=== PATIENT | male | born 1945 | race Two or more races ===

== ENCOUNTER → 2018-05-18 | Outpatient (CLI) | payer MEDICARE ==
[2015-08-12 14:45] VITALS: BP 132/75
[~2018-05-18] MED LIST: CANA300T PO; HYDR-963 PO; MOVANTIK25 MG PO; OXYC30TA PO; PANT40TA5 PO
[2018-05-22 15:29] LABS: ANA INTERP Negative (.)
[2018-05-22 19:15] LABS: ALPHA 1 0.2 g/dL (0.0-0.4); ALPHA 2 0.6 g/dL (0.4-1.0); BETA 1.1 g/dL (0.7-1.3); GAMMA 2.5 g/dL (0.4-1.8); PROTEIN TOTAL 7.6 g/dL (6.0-8.5); SPEP AG RATIO 0.7 (0.7-1.7)
== END | disposition home or self-care (01) ==
LOC: LAB 11:45 → EDBD 11:45
PROVIDERS: ATTEND Psychiatry & Neurology Neurology with Special Qualifications in Child Neurology
DX: E11.42 Type 2 diabetes mellitus with diabetic polyneuropathy (principal)
CPT/HCPCS: 36415; 82607; 82746; 84165; 84443; 85651; 86038

== ENCOUNTER → 2018-05-19 | Outpatient (CLI) | payer MEDICARE ==
[2015-08-12 14:45] VITALS: BP 132/75
--- NOTE | 2018-05-19 18:05 | RAD ---
LEFT HIP AP AND LATERAL Clinical Indication: CHRONIC LEFT HIP PAIN Comparison: None. Findings: There is no acute fracture or dislocation. Mild degenerative arthropathy of the left hip for patient age. There is mild joint space narrowing. Visualized pelvic bones appear intact. There is no soft tissue abnormality or radiopaque foreign body. IMPRESSION: Mild degenerative arthropathy. Electronically signed by: Fito Baez MD (05/19/2018 6:02 PM) [id number]
== END | disposition home or self-care (01) ==
LOC: RAD 14:33
PROVIDERS: ATTEND Family Medicine
DX: M12.852 Other specific arthropathies, not elsewhere classified, left hip (principal); G89.29 Other chronic pain
CPT/HCPCS: 73502

== ENCOUNTER → 2020-03-14 | Outpatient (CLI) | payer MEDICARE ==
[2015-08-12 14:45] VITALS: BP 132/75
[~2020-03-14] MED LIST changes: +HYDR-3135 PO; -HYDR-963 PO; -OXYC30TA PO; +OXYC30TA3 PO; -PANT40TA5 PO; +PANT40TA77 PO
--- NOTE | 2020-03-14 14:32 | RAD ---
EXAM: Cervical spine, 6 views. HISTORY: Pain. COMPARISON: None. FINDINGS: 6 views of the cervical spine are obtained. There is no listhesis. The vertebral bodies are normal in height and the disc spaces are preserved. There is small ossicles along the anterior aspects of C5-C6 and C6-C7. There is mild facet arthropathy at multiple levels. IMPRESSION: No acute osseous finding. Mild multilevel degenerative change. Electronically signed by: Rae Murdock MD (03/14/2020 2:29 PM) [facility]
== END | disposition home or self-care (01) ==
LOC: RAD 11:31
PROVIDERS: ATTEND Family Medicine
DX: M79.602 Pain in left arm (principal); M79.605 Pain in left leg; M54.2 Cervicalgia; M47.9 Spondylosis, unspecified
CPT/HCPCS: 72050

== ENCOUNTER 2020-03-31 07:46 | Emergency (ER) | payer MEDICARE ==
[~2020-03-31] VITALS: Ht 162.6 cm; Wt 81.4 kg
[2020-03-31 07:50] VITALS: BP 161/75
[2020-03-31] MEDS ORDERED: OXYC10TA PO (08:08)
--- NOTE | 2020-03-31 08:08 | PHYS DOC ---
Past Medical History Past Medical History: No Pertinent History Past Surgical History: No Surgical History Smoking Status: Never Smoker Alcohol Use: None Drug Use: None General Adult EDM: Chief Complaint: MEDICATION REFILL HPI: HPI: Patient is a 74 year old male who had chronic knee pain, on chronic pain med ication oxycodone 10 mg every 4 hours as needed for pain, presented to ER today for medication refill because patient said he ran out of medication 1 day earlier than his supposed to be. Patient said he will see her family doctor tomorrow for his pain medication, but he needs some pain medication relief today. Patient denies any injury. Patient denies any nausea vomiting, no abd ominal pain, no cough, no fever. Review of Systems: Review of Systems: Constitutional: Denies fever or chills. [] Eyes: Denies change in visual acuity. [] HENT: Denies nasal congestion or sore throat. [] Respiratory: Denies cough or shortness of breath. [] Cardiovascular: Denies chest pain or edema. [] GI: Denies abdominal pain, nausea, vomiting, bloody stools or diarrhea. [] : Denies dysuria. [] Musculoskeletal: Denies back pain, positive for bilateral knee pain. Integument: Denies rash. [] Neurologic: Denies headache, focal weakness or sensory changes. [] Endocrine: Denies polyuria or polydipsia. [] Lymphatic: Denies swollen glands. [] Psychiatric: Denies depression or anxiety. [] Heart Score: Risk Factors: Risk Factors: DM, Current or recent (<one month) smoker, HTN, HLP, family history of CAD, obesity. Risk Scores: Score 0 - 3: 2.5% MACE over next 6 weeks - Discharge Home Score 4 - 6: 20.3% MACE over next 6 weeks - Admit for Clinical Observation Score 7 - 10: 72.7% MACE over next 6 weeks - Early Invasive Strategies Allergies: Allergies: Allergies Coded Allergies Type Severity Reaction Last Updated Verified Penicillins Allergy Intermediate Itching 08/12/15 Yes Physical Exam: PE: Constitutional: Well developed, well nourished, no acute distress, non-toxic gigi earance. [] HENT: Normocephalic, atraumatic, bilateral external ears normal, oropharynx moist, no oral exudates, nose normal. [] Eyes: PERRLA, EOMI, conjunctiva normal, no discharge. [] Neck: Normal range of motion, no tenderness, supple, no stridor. [] Cardiovascular:Heart rate regular rhythm, no murmur [] Lungs & Thorax: Bilateral breath sounds clear to auscultation [] Abdomen: Bowel sounds normal, soft, no tenderness, no masses, no pulsatile masses. [] Skin: Warm, dry, no erythema, no rash. [] Back: No tenderness, no CVA tenderness. [] Extremities: No tenderness, no cyanosis, no clubbing, ROM intact, no edema. [] Neurologic: Alert and oriented X 3, normal motor function, normal sensory function, no focal deficits noted. [] Psychologic: Affect normal, judgement normal, mood normal. [] EKG: EKG: [] Radiology/Procedures: Radiology/Procedures: [] Course & Med Decision Making: Course & Med Decision Making Pertinent Labs and Imaging studies reviewed. (See chart for details) Patient is a 74-year-old male who was evaluated in ER due to chronic knee pain, he request refill for his chronic pain medication. Patient was given 6 tablets of oxycodone prescription, he will need to see his doctor tomorrow. Mary [place] Disclaimer: [facility] Disclaimer: This electronic medical record was generated, in whole or in part, using a voice recognition dictation system. Departure Departure Impression: Primary Impression: Chronic pain Additional Impression: Medication refill Disposition: 01 HOME, SELF-CARE Condition: STABLE Referrals: KP CARMICHAEL MD (PCP) follow up with Dr. Carmichael tomorrow. Patient Instructions: Chronic Pain, Medication Refill, Emergency Department Scripts Oxycodone Hcl (OXYCODONE HCL IMMED.RELEASE) 10 Mg Tablet 10 MG PO PRN Q6HRS PRN for PAIN for 1 Day, #6 TAB 0 Refills Prov: KORINA GRANDE DO 03/31/20 Justicifation of Admission Dx: Justifications for Admission: Justification of Admission Dx: N/A KORINA GRANDE DO Mar 31, 2020 08:08
== END 2020-03-31 08:15 | disposition home or self-care (01) ==
LOC: ER 07:46
DX: G89.29 Other chronic pain (principal); M25.561 Pain in right knee; M25.562 Pain in left knee; Z88.0 Allergy status to penicillin; Z76.0 Encounter for issue of repeat prescription
CPT/HCPCS: 99281

== ENCOUNTER → 2020-07-08 | Outpatient (CLI) | payer MEDICARE ==
[~2020-07-08] MED LIST changes: +OXYC10TA PO
--- NOTE | 2020-07-08 15:44 | KCIC ---
MRI of the lumbar spine without contrast 08/08/2019 CLINICAL HISTORY: Low back pain with bilateral leg pain for last 2-3 years. TECHNIQUE: Unenhanced T1-weighted and T2-weighted sagittal and axial and inversion recovery sagittal images the lumbar spine were obtained. FINDINGS: Minimal S-shaped curvature of the thoracolumbar spine is seen. Degenerative signal changes are seen involving all of the disks of the lumbar spine. The marrow signal of the visualized bony str uctures is within normal limits. The conus medullaris is normal morphology, position, and signal maral acteristics. 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 The L1-2 disc space is a minimal generalized disc bulge. Degenerative changes are seen involving the facet joints bilaterally. These findings do not result in significant central spinal canal or neural foraminal stenosis. The L2-3 disc space there is a mild generalized disc bulge. Degenerative changes are seen involving t he facet joints bilaterally. There is mild to moderate ligamentum flavum hypertrophy bilaterally. The se findings combine with the narrow AP diameter of the central spinal canal result in mild central sp inal canal stenosis. No neural foraminal stenosis is seen. At the L3-4 disc space there is a mild to moderate generalized disc bulge. This is eccentric to the r ight. Degenerative changes are seen involving the facet joints bilaterally. There is moderate ligamen yoni flavum hypertrophy bilaterally. These findings when combined result in mild central spinal canal stenosis. No neural foraminal stenosis is seen. At the L4-5 disc space there is a mild generalized disc bulge. Degenerative changes are seen involvin g the facet joints bilaterally. There is moderate ligamentum flavum hypertrophy bilaterally. These fi ndings when combined result in mild central spinal canal stenosis. No neural foraminal stenosis is se en. At the L5-S1 disc space there is a mild generalized disc bulge. Degenerative changes are seen involvi ng the facet joints bilaterally. These findings when combined do not result in significant central sp inal canal or neural foraminal stenosis. IMPRESSION: The changes of degenerative disc disease are seen involving the lumbar spine. These findi ngs result in mild central spinal canal stenosis at L2-3, L3-4 and L4-5. No neural foraminal stenosis is seen. Electronically signed by: Oswald Webb MD (07/08/2020 3:41 PM) [id number]
== END ==
LOC: KCIC MRI 12:48
PROVIDERS: ATTEND Family Medicine
DX: M51.36 Other intervertebral disc degeneration, lumbar region (principal); M48.061 Spinal stenosis, lumbar region without neurogenic claudication; M79.7 Fibromyalgia
CPT/HCPCS: 72148

== ENCOUNTER → 2020-07-29 | Outpatient (CLI) | payer MEDICARE ==
[~2020-07-29] MED LIST changes: +IOHEXOL 180 MG/ML 10 ML VIAL. ONE; +methylPREDNISolone ACETATE 40 MG/ML VIAL. ONE; +methylPREDNISolone ACETATE 80 MG/ML VIAL. ONE
--- NOTE | 2020-07-29 14:31 | PDOC1 ---
INITIAL PAIN CONSULT DATE OF SERVICE: DOS: DATE: 07/29/20 TIME: 14:22 CHIEF COMPLAINT: Chief Complaint: Low back and bilateral lower extremity pain HISTORY OF PRESENT ILLNESS: 74-year-old male presents with history of pain low back bilateral lower extremities for many years approximate 11 years worse with walking standing changing positions better with sitting or laying down but does awaken her from sleep occasionally on and off patient reports it does affect his ability to walk and can affect his bladder or bowel control but is usually increased urgency and no loss of continence. Patient reports he has had multiple physical therapy treatments over the years chiropractic treatments epidural injections facet blocks and was suggested that he get his stimulator several years ago through an outside pain clinic. Patient reports that he was not interested in doing that at the time and has just been putting up with the pain he does take oxycodone 10 mg up to twice a day patient did have a recent MRI scan of his lumbar spine showing multiple levels of degenerative disc disease with the mild central spinal canal stenosis L2-3 L3-4 and L4-5 with no neuroforaminal stenosis with generalized disc bulges at L2-3 L3 445 and 5 S1 with mild spinal canal stenosis at the L3-4 and L4-5 levels as well. Patient reports his pain is throbbing changes during the day worse with activity standing walking changing positions better with sitting or laying down radiating pain described as aching in the back cramping and sometimes worse at night patient rates his disability rating 0-10 10 being the worst is a 5 with family home responsibilities 8 with recreation social activity 9 with sexual Haver 6 with occupational activity 3 with self-care and one with life support activities. PAST MEDICAL HISTORY: PMH: Type 2 diabetes, hearing loss, cataracts, arthritis, cirrhosis, gastroesophageal reflux, depression, neuropathy PREVIOUS SURGERIES: Past Surgical Hx: Left knee surgery, bilateral cataract extractions CURRENT MEDICATIONS: Current Meds: Active Scripts Medications Dose Route/Sig Max Daily Dose Days Date Category Oxycodone Hcl Immed.release (Oxycodone Hcl) 10 Mg Tablet 10 Mg PO PRN Q6HRS PRN 1 03/31/20 Rx Movantik (Naloxegol Oxalate) 25 Mg Tablet 25 Mg PO DAILY 08/12/15 Reported Invokana (Canagliflozin) 300 Mg Tablet 300 Mg PO DAILY 08/12/15 Reported Oxycodone Hcl Immed.release (Oxycodone Hcl) 30 Mg Tablet 1 Tab PO Q4HRS PRN 08/12/15 Reported ALLERGIES; Allergies: Coded Allergies: Penicillins (Verified Allergy, Intermediate, Itching, 08/12/15) FAMILY HISTORY: Family Hx: Heart disease, diabetes, cancers, hypertension SOCIAL HISTORY: Social Hx: Patient does not drink alcohol does not smoke does not use any illegal illicit recreational drugs is single lives locally in [facility] REVIEW OF SYSTEMS: ROS: Positive for those items mentioned in history of present illness, all systems are reviewed, otherwise negative, is complete full and well-documented on patient's chart PHYSICAL EXAM: VS: Pressure is 143/69 pulse 94 respirations 20 temperature 98.8 F height is 5 feet 4 inches weight is 190 pounds PE: PHYSICAL EXAMINATION: GENERAL: The patient is awake, alert, oriented, appropriate, very pleasant demeanor HEENT: Shows normocephalic, atraumatic. Extraocular movements are intact and symmetrical. Oral cavity: Mucous membranes moist and pink. Dentition is in tact. NECK: Shows anterior throat supple without palpable lymphadenopathy noted. Swallow reflex symmetrical. CHEST: Shows normal on inspection. Breath sounds are clear bilaterally, no rales rhonchi or wheezes auscultated. HEART: Shows S1, S2 clear. No murmurs auscultated. ABDOMEN: Soft, nontender, nondistended, obese. No palpable organomegaly is noted. No rebound or guarding demonstrated. BACK: Shows spine grossly in the midline. Normal-appearing cervical lordotic curvature. There is increased thoracic kyphosis, some flattening of the lumbar lordotic curvature. Lumbar paraspinous muscles show symmetrical on inspection, on palpation shows some moderate tenderness diffusely throughout the upper, middle and lower distribution of the paraspinous muscles bilaterally and also into the lower thoracic paraspinous musculature, firm and tender, but without specific trigger points, without radiation of pain. The patient has good rotational motion of the lumbar spine, both laterally as well as extension and flexion without significant difficulty. No tenderness over the spinous processes, sacrum or sacroiliac regions. EXTREMITIES: Lower extremities show deep tendon reflexes 1+ in the patellar and tendo calcaneus tendons. Motor exam is 4 on a scale of 5 with right dorsiflexion, extension, quadriceps and hamstring flexion and 4/5 on the left. Peripheral pulses are 1+ posterior tibial. No peripheral edema is noted bilaterally. Lower extremities are warm and dry to touch, equal in color and appearance. Straight leg raise noted to be negative bilaterally. Gaenslen's and Ervin's maneuvers are negative bilaterally as well. The patient is able to stand, needs help using the arms of the chair to get to a standing position from seated but is walking with a slight shuffling gait does not appear to favor the right or left lower extremity significantly over the other and is not using any assistive devices to ambulate. SKIN: Shows warm and dry, good turgor. No edema. No sores, rashes or bruising throughout. IMPRESSION: Impression: 74-year-old male with 11-year plus history of low back and bilateral lower extremity pain, status post multiple interventions over time. MRI scan lumbar spine as noted Arthritis Type 2 diabetes Plan: Options were discussed with the patient including conservative medical management physical therapies and interventional techniques. Patient would like to try an eventual techniques once again as he has had some limited success with these in the past. We discussed a lumbar epidural steroid injection using description as well as anatomical models to describe the procedure. Risks were discussed including but not limited to: Bleeding, infection, possibility of epidural hematoma and subsequent neurological compromise, dural puncture, headaches, spinal cord and/or nerve damage, side effects of steroid medication, and poor results regarding pain control. Patient understands wished to proceed. Patient will return to clinic in approximate 2 weeks for follow-up, was counse led as to return appointment activity level and side effects to be aware of. Procedure is lumbar epidural steroid injection under local anesthetic using sterile prep and drape at the L4-5 level using C-arm fluoroscopic guidance in both AP and lateral views medications injected is 120 mg Depo-Medrol + 10 mL preservative-free normal saline and 2 mL contrast- condition at discharge is stable patient tolerated procedure well had no complications. ASHLEY LEIVA MD Jul 29, 2020 14:31
== END | disposition home or self-care (01) ==
LOC: PNCL 12:52
PROVIDERS: ATTEND Anesthesiology
DX: M54.5 Low back pain (principal); M79.605 Pain in left leg; M79.604 Pain in right leg; M19.90 Unspecified osteoarthritis, unspecified site; K21.9 Gastro-esophageal reflux disease without esophagitis; F32.9 Major depressive disorder, single episode, unspecified; E11.40 Type 2 diabetes mellitus with diabetic neuropathy, unspecified; Z88.0 Allergy status to penicillin; Z79.899 Other long term (current) drug therapy; Z98.890 Other specified postprocedural states; Z82.49 Family history of ischemic heart disease and other diseases of the circulatory system; Z83.3 Family history of diabetes mellitus
CPT/HCPCS: 62323; J1030; J1040; Q9965

== ENCOUNTER → 2020-08-19 | Outpatient (CLI) | payer MEDICARE ==
[~2020-08-19] MED LIST changes: +DIPH25CA PO; +IBUP200T58 PO; +LACT20SO PO; +METF500T16 PO
--- NOTE | 2020-08-19 12:04 | PDOC ---
Progress Note - Pain Clinic Date of Service: DOS: DATE: 08/19/20 TIME: 12:01 Diagnosis: Dx: Lumbar radiculopathy with lumbar degenerative disc disease lumbar spinal stenosis and lumbar spondylosis History or Present Illness: HPI: 75-year-old male returns for follow-up status post lumbar epidural steroid traction x1. Patient reports no significant improvement in the low back and bilateral lower extremity pain. Patient reports still pain in the bilateral lower extremities worse on the right than the left traveling in the anterior medial aspect of the thigh into the medial lower leg to the ankle and foot as well as across the low back and the bilateral posterior gluteus and on the left anterior thigh as well. Patient reports worse with walking standing changing positions keeps him from sleeping, and awakens him about every 6 hours. Patient reports his pain is a 9 on scale 10 at all times average worst and least and is a 9 today. Patient scribes pain is aching and dull tingling cramping and shooting greater in the right than the left lower extremity. Patient reports no new motor or sensory deficits no new bowel or bladder incontinence or other comp laints. Physical Exam: VS: Blood pressure is 137/71 pulse 93 respirations 18 temperature 98.9 F height is 5 feet 4 inches weight is 188 pounds PE: PHYSICAL EXAMINATION: GENERAL: The patient is awake, alert, oriented, appropriate, very pleasant demeanor HEENT: Shows normocephalic, atraumatic. Extraocular movements are intact and symmetrical. Oral cavity: Mucous membranes moist and pink. NECK: Shows anterior throat supple without palpable lymphadenopathy noted. Swallow reflex symmetrical. CHEST: Shows normal on inspection. Breath sounds are clear bilaterally. HEART: Shows S1, S2 clear. No murmurs auscultated. ABDOMEN: Soft, nontender, nondistended, obese. No palpable organomegaly is noted. BACK: Shows spine grossly in the midline. Normal-appearing cervical lordotic curvature. There is increased thoracic kyphosis, some flattening of the lumbar lordotic curvature. Lumbar paraspinous muscles show symmetrical on inspection, on palpation shows some moderate tenderness diffusely throughout the upper, middle and lower distribution of the paraspinous muscles without specific trigger points, without radiation of pain. The patient has good rotational motion of the lumbar spine, both laterally as well as extension and flexion without significant difficulty. EXTREMITIES: Lower extremities show deep tendon reflexes 1+ in the patellar and tendo calcaneus tendons. Motor exam is 4 on a scale of 5 with right dorsiflexion, extension, quadriceps and hamstring flexion and 4/5 on the left. Peripheral pulses are 1+ posterior tibial. No peripheral edema is noted bilaterally. Lower extremities are warm and dry to touch, equal in color and appearance. SKIN: Shows warm and dry, good turgor. No edema. No sores, rashes or bruising throughout. Procedure: Procedure: Options discussed with the patient. Patient's old chart reviewed his his current medication regimen updated current review of systems updated today as well. We will proceed with a second in the series lumbar epidural steroid injection today with fluoroscopic guidance. Risks were discussed including but not limited to: Bleeding, infection, possibility of epidural hematoma and subsequent neurological compromise, dural puncture, headaches, spinal cord and/or nerve damage, side effects of steroid medication, and poor results regarding pain control. Patient understands and wished to proceed. Patient will return to clinic in approximate 2 weeks for follow-up, was counseled as to return appointment activity level and side effects to be aware of. Medication Injected: Med Injected: Procedure is lumbar epidural steroid injection under local anesthetic using sterile prep and drape at the L4-5 level using C-arm fluoroscopic guidance in both AP and lateral views medications injected is 120 mg Depo-Medrol + 10 mL preservative-free normal saline and 2 mL contrast- condition at discharge is stable patient tolerated procedure well had no complications. Condition at Discharge: Condition at Discharge: Condition at discharge is stable, patient tolerated procedure well and had no complications. ASHLEY LEIVA MD Aug 19, 2020 12:04
--- NOTE | 2020-08-19 12:08 | PDOC4 ---
PROCEDURE Procedure Patient was consented for lumbar epidural steroid injection. Risks were dis cussed including but not limited to: Bleeding, infection, possibility of epidural hematoma and subsequent neurological compromise, dural puncture, headaches, spinal cord and/or nerve damage, side effects of steroid medication, and poor results regarding pain control. Patient understands and wished to proceed. Procedure is lumbar epidural steroid injection under local anesthetic using sterile prep and drape at the L4-5 level using C-arm fluoroscopic guidance in both AP and lateral views medications injected is 120 mg Depo-Medrol + 10 mL preservative-free normal saline and 2 mL contrast- condition at discharge is stable patient tolerated procedure well had no complications. ASHLEY LEIVA MD Aug 19, 2020 12:08
== END | disposition home or self-care (01) ==
LOC: PNCL 10:48
PROVIDERS: ATTEND Anesthesiology
DX: M51.16 Intervertebral disc disorders with radiculopathy, lumbar region (principal); M48.061 Spinal stenosis, lumbar region without neurogenic claudication; M47.26 Other spondylosis with radiculopathy, lumbar region; M19.90 Unspecified osteoarthritis, unspecified site; E11.9 Type 2 diabetes mellitus without complications; Z79.84 Long term (current) use of oral hypoglycemic drugs; Z79.899 Other long term (current) drug therapy; Z88.0 Allergy status to penicillin; Z98.890 Other specified postprocedural states
CPT/HCPCS: 62323; J1030; J1040; Q9965

== ENCOUNTER → 2020-09-02 | Outpatient (CLI) | payer MEDICARE ==
[~2020-09-02] MED LIST changes: +BUPIVACAINE MPF 0.25% 10 ML VIAL. ONE
--- NOTE | 2020-09-02 12:45 | PDOC ---
Progress Note - Pain Clinic Date of Service: DOS: DATE: 09/02/20 TIME: 12:41 Diagnosis: Dx: lumbar degenerative disc disease lumbar spinal stenosis and lumbar and lumbosacral spondylosis History or Present Illness: HPI: 75-year-old male returns to follow-up status post lumbar epidural steroid action x2. Patient ports only minimal decrease in pain each of the injections only for few days pain still in the low back and patient reports is less in his legs now the knee is in the low back itself worse with extension lumbar spine twisting bending moving changing position especially when he first gets up from sleeping and starts to put weight on his legs he has pain in the knees as well but the pain in the back is his main complaint. Patient rates is a 10 on scale 10 is worse over the past week 10 on average 7 its least is a 10 today. Patient reports it wakes him sleep about once every 6 hours is worse with walking standing specially bending and stooping or reaching above his head with his arms. Patient reports having some leg cramps at night as well. Patient describes pain as aching cramping tingling in the low back radiating bilaterally right essentially equal to left and can be unbearable at times specially with getting up from a seated position and extension of the lumbar spine. Physical Exam: VS: Pressure is 145/64 pulse 87 respirations 18 temperature 99.2 F height is 5 feet 4 inches weight is 177 pounds PE: PHYSICAL EXAMINATION: GENERAL: The patient is awake, alert, oriented, appropriate, very pleasant demeanor HEENT: Shows normocephalic, atraumatic. Extraocular movements are intact and symmetrical. NECK: Shows anterior throat supple without palpable lymphadenopathy noted. Swallow reflex symmetrical. CHEST: Shows normal on inspection. Breath sounds are clear bilaterally no rales or rhonchi. HEART: Shows S1, S2 clear. No murmurs auscultated. ABDOMEN: Soft, nontender, nondistended, obese. No palpable organomegaly is noted. No rebound or guarding demonstrated. BACK: Shows spine grossly in the midline. Normal-appearing cervical lordotic curvature. There is increased thoracic kyphosis, some flattening of the lumbar lordotic curvature. Lumbar paraspinous muscles show symmetrical on inspection, on palpation shows some moderate tenderness diffusely throughout the upper, middle and lower distribution of the paraspinous muscles without specific trigger points, without radiation of pain. The patient has good rotational motion of the lumbar spine, both laterally greater than 10 degrees with some moderate pain reported with extension greater than 10 degrees significant pain across the low back bilaterally better but not relieved completely with forward flexion at 45 degrees. No tenderness over the spinous processes, sacrum or sacroiliac regions. EXTREMITIES: Lower extremities show deep tendon reflexes 1+ in the patellar and tendo calcaneus tendons. Motor exam is 4 on a scale of 5 with right dorsiflexion, extension, quadriceps and hamstring flexion and 4/5 on the left. Peripheral pulses are 1+ posterior tibial. No peripheral edema is noted bilaterally. Lower extremities are warm and dry to touch, equal in color and appearance. SKIN: Shows warm and dry, good turgor. No edema. No sores, rashes or bruising throughout. Procedure: Procedure: Options were discussed with the patient. Patient's old chart reviews his c urrent medication regimen updated current review of systems updated today as well. We will proceed with bilateral L4-5 and L5-S1 facet joint injections today with fluoroscopic guidance. Risks were discussed including but not limited to: Bleeding, infection, possibility of epidural hematoma and subsequent neurological compromise, dural puncture, headaches, spinal cord and/or nerve damage, side effects of steroid medication, and poor results regarding pain control. Patient understands and wished to proceed. Patient will return to the clinic in approximately 2 weeks for follow-up, was counseled as return appointment activity level and side effects to be aware of. We discussed that if he was significantly improved we may repeat the blocks for diagnostic pur poses and discussed briefly radiofrequency ablation in the future as a potential as well. Patient is interested and also was given spinal cord stimulator information to review as this may be an option for him in the future as well. Medication Injected: Med Injected: Under sterile prep and drape using C-arm fluoroscopic guidance AP and lateral and oblique views, bilateral L4-5 and L5-S1 facet joint injections were performed, medications injected: 120 mg Depo-Medrol +4 cc 0.25% bupivacaine +2 cc contrast. Condition at discharge stable patient tolerated the procedure well and no complications. Condition at Discharge: Condition at Discharge: Condition at discharge is stable, patient tolerated procedure well and had no complications. ASHLEY LEIVA MD Sep 02, 2020 12:45
--- NOTE | 2020-09-02 12:46 | PDOC4 ---
PROCEDURE Procedure Patient was consented for bilateral L4-5 and L5-S1 facet injections. Risks were discussed including but not limited to: Bleeding, infection, possibility of epidural hematoma and subsequent neurological compromise, dural puncture, headaches, spinal cord and/or nerve damage, side effects of steroid medication, and poor results regarding pain control. Patient understands and wished to proceed. Under sterile prep and drape using C-arm fluoroscopic guidance AP and lateral and oblique views, bilateral L4-5 and L5-S1 facet joint injections were performed, medications injected: 120 mg Depo-Medrol +4 cc 0.25% bupivacaine +2 cc contrast. Condition at discharge stable patient tolerated the procedure well and no complications. AHSLEY LEIVA MD Sep 02, 2020 12:45
== END | disposition home or self-care (01) ==
LOC: PNCL 11:09
PROVIDERS: ATTEND Anesthesiology
DX: M51.36 Other intervertebral disc degeneration, lumbar region (principal); M48.061 Spinal stenosis, lumbar region without neurogenic claudication; M47.817 Spondylosis without myelopathy or radiculopathy, lumbosacral region; E11.9 Type 2 diabetes mellitus without complications; M19.90 Unspecified osteoarthritis, unspecified site; Z79.899 Other long term (current) drug therapy; Z98.890 Other specified postprocedural states; Z79.84 Long term (current) use of oral hypoglycemic drugs; Z88.0 Allergy status to penicillin
CPT/HCPCS: 64493; 64494; J1030; J1040; J3490; Q9965; 64635; 64636